=== PATIENT | female | born 1960 | race Caucasian/White ===

== ENCOUNTER 2019-07-26 07:53 | Emergency (ER) | payer BC, OTHER ==
[2019-07-26 08:57] LABS: APPEARANCE,URINE SLIGHTLY-CLOUDY; BILIRUBIN,URINE NEGATIVE (NEGATIVE); COLOR,URINE AMBER; GLUCOSE, URINE NEGATIVE (NEGATIVE); KETONES,URINE TRACE mg/dL (NEGATIVE); LEUKOCYTE ESTERASE,URINE TRACE (NEGATIVE); NITRITE,URINE NEGATIVE (NEGATIVE); PROTEIN,URINE NEGATIVE (NEGATIVE); URINE SPECIFIC GRAVITY 1.024; UROBILINOGEN,URINE NEGATIVE mg/dL (<2.0)
[2019-07-26] MEDS ORDERED: NORMAL SALINE 1000 ML 1,000 ML IV ONE (09:29)
[2019-07-26 09:32] LABS: ABSOLUTE NEUT (AUTO) 7.7 10^3/uL (1.7-8.2); BASOPHILS % (AUTO) 0.4 % (0-2); EOSINOPHILS % (AUTO) 0.4 % (0-6); HEMATOCRIT 47.2 % (36.0-47.0); LYMPHOCYTES % (AUTO) 10.2 % (13-45); MEAN CORPUSCULAR HEMOGLOBIN 33.4 pg (27.0-33.4); MEAN CORPUSCULAR HGB CONC 33.9 g/dL (32.0-36.0); MEAN CORPUSCULAR VOLUME 99 fl (80-97); MONOCYTES % (AUTO) 10.5 % (3-13); PLATELET COUNT 214 10^3/uL (150-450); RED BLOOD COUNT 4.79 10^6/uL (3.72-5.28); SEGMENTED NEUTROPHILS % (AUTO) 78.5 % (42-78); TOTAL CELLS COUNTED % (AUTO) 100 %; WHITE BLOOD COUNT 9.8 10^3/uL (4.0-10.5)
--- NOTE | 2019-07-26 09:42 | ER Document Report ---
ED General - General Chief Complaint: Abdominal Pain Stated Complaint: ABDOMINAL PAIN,NAUSEA,DIARRHEA Time Seen by Provider: 07/26/19 09:11 TRAVEL OUTSIDE OF THE [place] IN LAST 30 DAYS: No - HPI Notes: Patient is a 59-year-old female presents emergency department for evaluation of abdominal pain. Is been going on for the last month, worse over the last several days. She has had some nausea but no emesis. She states that as soon as she eats, her pain increases, and then she has diarrhea. She has had chills and sweats, is unsure if this is related to her pain. She denies any urinary symptoms. The patient admits to drinking alcohol daily, for at least the last 7 years. She states she is been cutting down on this as she has not been feeling very well. She denies any melena or hematochezia. She states she has had heartburn, nearly daily since the age of 20." She states she takes over-the-c ounter medications occasionally as a result, but tries to control it with diet. - Related Data Allergies/Adverse Reactions: No Known Allergies Allergy (Verified 07/26/19 08:11) Home Medications: Xanax 0.5 mg as needed Past Medical History - General Information source: Patient - Social History Smoking Status: Current Every Day Smoker Chew tobacco use (# tins/day): No Frequency of alcohol use: Heavy Drug Abuse: None Family History: None, Reviewed & Not Pertinent Patient has suicidal ideation: No Patient has homicidal ideation: No Pulmonary Medical History: Reports: Hx Asthma, Hx COPD GI Medical History: Reports: Hx Gastroesophageal Reflux Disease Musculoskeletal Medical History: Reports Hx Arthritis Psychiatric Medical History: Reports: Hx Anxiety, Hx Attention Deficit Hyperactivity Disorder - Stopped Adderall in May 2019, Hx Depression Past Surgical History: Reports: Hx Cholecystectomy, Hx Rectal Surgery, Hx Tonsillectomy - Immunizations Immunizations up to date: Yes Hx Diphtheria, Pertussis, Tetanus Vaccination: No Review of Systems - Review of Systems Constitutional: See HPI EENT: No symptoms reported Cardiovascular: No symptoms reported Respiratory: No symptoms reported Gastrointestinal: See HPI Genitourinary: No symptoms reported Musculoskeletal: No symptoms reported Skin: No symptoms reported Neurological/Psychological: No symptoms reported Physical Exam - Vital signs Vitals: Temp Pulse Resp BP Pulse Ox 98.1 F 129 H 20 151/93 H 99 07/26/19 07:58 07/26/19 07:58 10 07:58 07/26/19 07:58 07/26/19 07:58 - Notes Notes: Vital signs reviewed, please refer to chart. Head is normocephalic, atraumatic. Pupils equal round, reactive to light. Neck is supple without meningismus. Heart is tachycardic. Lungs are clear to auscultation bilaterally. Abdomen is soft, diffusely tender but significantly tender in both epigastrium and suprapubic regions, no rebound or guarding. Normoactive bowel sounds throughout. Extremities without cyanosis, clubbing. Posterior calves are nontender. Peripheral pulses are equal. Skin is warm and dry. Patient is cristofer ke, alert, neurological exam is nonfocal. Course - Re-evaluation Re-evalutation: 07/26/19 11:18 Patient presents emergency department for evaluation of abdominal pain. She is a chronic alcoholic. She is warned against the dangers of this, and voiced understanding. She is interested in getting some help, she states she is to see a counselor that was helpful and abstaining from alcohol, but he has moved away. Laboratory investigations were obtained and were largely unremarkable. She does not have any evidence of pancreatitis, her blood alcohol is negative at this time. Given her symptom complex, I strongly suspect gastritis versus gastric ulcer. I did go ahead and give her IV Pepcid. I will send her home with a prescription for Protonix. I strongly encouraged her to follow-up with primary care and seek out referral to gastroenterology. She should have an EGD for further evaluation of possible ulceration. Certainly, it is also known and documented that the alcohol intake can increase her chances of gastric cancer. This is communicated to the patient as well and she voiced understanding. Otherwise, she is to return to the ED with worsening or new concerning symptoms of any sort. - Vital Signs Vital signs: Temp Pulse Resp BP Pulse Ox 98.1 F 98 20 151/93 H 99 07/26/19 07:58 07/26/19 10:01 07/26/19 07:58 07/26/19 07:58 07/26/19 07:58 - Laboratory Result Diagrams: 07/26/19 09:10 07/26/19 09:10 Laboratory results interpreted by me: 07/26/19 07/26/19 08:25 09:10 Hgb 16.0 H Hct 47.2 H MCV 99 H Lymph % (Auto) 10.2 L Seg Neutrophils % 78.5 H Urine Ketones TRACE H Ur Leukocyte Esterase TRACE H Discharge - Discharge Clinical Impression: Alcoholism /alcohol abuse Gastritis Qualifiers: Gastritis type: alcoholic Gastritis bleeding: without bleeding Condition: Stable Disposition: HOME, SELF-CARE Instructions: Abdominal Pain ([facility]), Gastritis ([facility]) Additional Instructions: Try to abstain from alcohol. Avoid spicy and greasy foods. Take medication as prescribed. You should follow-up with your doctor this week, discuss further evaluation with gastroenterology, including EGD for further evaluation. If you develop black or dark tarry stools, increased pain, difficulty breathing, or any other new or concerning symptoms, return immediately to the emergency department for evaluation.
[2019-07-26 09:46] LABS: PROTHROMBIN TIME 13.2 SEC (11.4-15.4)
[2019-07-26 09:51] LABS: ALBUMIN 4.2 g/dL (3.5-5.0); ALKALINE PHOSPHATASE 101 U/L (38-126); ANION GAP 8 (5-19); ASPARTATE AMINO TRANSFERASE 28 U/L (14-36); BILIRUBIN,TOTAL 0.9 mg/dL (0.2-1.3); BLOOD UREA NITROGEN 12 mg/dL (7-20); CALCIUM 9.3 mg/dL (8.4-10.2); CARBON DIOXIDE 30 mmol/L (22-30); CHLORIDE 101 mmol/L (98-107); GLUCOSE 104 mg/dL (75-110); POTASSIUM 4.5 mmol/L (3.6-5.0); TOTAL PROTEIN 6.9 g/dL (6.3-8.2)
[2019-07-26] MEDS ORDERED: FAMOTIDINE INJ/PF 20 MG/2 ML SDV IV ONE (11:09)
[2019-07-26 11:24] VITALS: BP 150/85
== END 2019-07-26 11:48 | disposition home or self-care (01) ==
LOC: ER 07:53
DX: F10.20 Alcohol dependence, uncomplicated (principal); K29.20 Alcoholic gastritis without bleeding; R10.9 Unspecified abdominal pain; F17.200 Nicotine dependence, unspecified, uncomplicated; J44.9 Chronic obstructive pulmonary disease, unspecified; Z90.49 Acquired absence of other specified parts of digestive tract
CPT/HCPCS: 99284; 96361; 96374; 36415; 80307; 83690; 85025; 85610; 80053; 81001; J7030; S0028

== ENCOUNTER → 2019-08-20 | Outpatient (CLI) | payer BC ==
--- NOTE | 2019-08-21 08:36 | RADIOLOGY REPORT (SQ) ---
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 RADIONUCLIDE AND DOSE: 10.3 mCi F18 FDG The route of agent administration: Intravenous FASTING BLOOD SUGAR: 84 mg/dl CONTRAST TYPE AND DOSE: No CT contrast given. TECHNIQUE: Blood glucose level was verified. Above dose of FDG was injected intravenously. 2-D seg mented attenuation correction images were obtained from the base of the skull to the midthighs. Nonc ontrast CT images were obtained for attenuation correction and fusion with emission images. CT image s were performed without oral or intravenous contrast and are not sensitive for parenchymal lesions. A series of overlapping emission PET images were obtained. Images reviewed and manipulated at [facility] work station by the radiologist. Images stored on PACS. LIMITATIONS: None. FINDINGS: HEAD AND NECK: No areas of abnormal metabolic activity in the soft tissues of the head and neck. CHEST: No areas of abnormal metabolic activity in the chest. ABDOMEN AND PELVIS: Diffuse peritoneal implants which are hypermetabolic. Example right subhepatic l esion 5.7 x 2.2 cm measuring 8.1 SUV. Image 147 series 3. On image 187 series 3, 10 mm hypermetabolic lesion left adnexa 7.6 SUV. PROXIMAL LOWER EXTREMITIES: No areas of abnormal metabolic activity in the soft tissues of the lower extremities. BONES: No abnormal metabolic activity in the visualized skeleton. ADDITIONAL CT FINDINGS: Status post hysterectomy. Sigmoid diverticulosis. Small amount of free flui d the pelvis. Prior cholecystectomy. OTHER: Liver background 1.9 SUV. Blood pool 1.6 SUV. IMPRESSION: Diffuse hypermetabolic peritoneal metastasis. Hypermetabolic left ovary possible primar y. TECHNICAL DOCUMENTATION: JOB ID: [id number] [employer]- All Rights Reserved Reading location - IP/workstation name: [email or web address]
== END ==
LOC: RAD 14:17
PROVIDERS: ATTEND Internal Medicine Hematology & Oncology
DX: C48.1 Malignant neoplasm of specified parts of peritoneum (principal); K57.30 Diverticulosis of large intestine without perforation or abscess without bleeding
CPT/HCPCS: 78815; A9552